=== PATIENT | female | born 1960 | race Caucasian/White ===

== ENCOUNTER 2017-02-23 15:37 | Emergency (ER) | payer OTHER ==
[2017-02-23 15:38] VITALS: BMI 30.7
[2017-02-23 15:57] VITALS: BP 134/83; PULSE 71; RESP 16; TEMP 97.7; O2SAT 97
[2017-02-23] MEDS ORDERED: Bacitracin 500 Units/gm Oint Foilpak UD TOP ONE (16:01)
[2017-02-23] MEDS ORDERED: Naproxen 550 mg Tab PO STA (16:02)
[2017-02-23] MEDS ORDERED: Naproxen 550 mg Tab PO ONE (16:06)
[2017-02-23] MEDS ORDERED: Bacitracin 500 Units/gm Oint Foilpak UD ONE (16:06)
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
== END 2017-02-23 16:37 | disposition home or self-care (01) ==
LOC: C.ER 15:37
DX: S80.01XA Contusion of right knee, initial encounter (principal); S80.02XA Contusion of left knee, initial encounter; S60.512A Abrasion of left hand, initial encounter; S60.511A Abrasion of right hand, initial encounter; W01.0XXA Fall on same level from slipping, tripping and stumbling without subsequent striking against object, initial encounter